=== PATIENT | female | born 1945 | race Two or more races ===

== ENCOUNTER 2024-02-09 15:28 | Emergency (ER) | payer OTHER, MEDICAID ==
[~2024-02-09] VITALS: Ht 154.9 cm; Wt 77.0 kg
[2024-02-09 16:58] LABS: Urine Bacteria None Seen /hpf (None Seen); Urine WBC None Seen /hpf (0 - 5)
[2024-02-09 17:14] LABS: Basophils # (auto) 0 10 ^3/uL (0-0.2); Basophils % (auto) 0.5 % (0.0-2.0); Eosinophils # (auto) 0 10 ^3/uL (0-0.8); Eosinophils % (auto) 0.7 % (0.0-7.0); Hematocrit 40.5 % (36.0-46.0); Hemoglobin 13.4 g/dL (12.2-16.2); Lymphocytes # (auto) 1.5 10 ^3/uL (0.4-5.4); Lymphocytes % (auto) 22.3 % (10.0-50.0); Mean Corpuscular Hemoglobin 30.4 pg (28.0-32.0); Mean Corpuscular Hgb Conc. 33.1 g/dL (32.0-36.0); Mean Corpuscular Volume 92.1 fL (80.0-100.0); Monocytes # (auto) 0.7 10 ^3/uL (0-1.3); Monocytes % (auto) 10.7 % (0.0-12.0); Neutrophils # (auto) 4.5 10 ^3/uL (1.6-8.6); Neutrophils % (auto) 65.8 % (37.0-80.0); Nucleated Red Blood Cells % 0.2 %; Platelet Count (auto) 224 10^3/uL (140-450); Red Cell Distribution Width 13.2 % (11.8-14.3); White Blood Cell 6.9 10^3/uL (4.4-10.8)
[2024-02-09 17:17] LABS: Urine Blood 2+ /uL (Negative); Urine Clarity Ex.Turbid (Clear); Urine Color Light-Orange (Yellow); Urine Protein, UAD 2+ (Negative); Urine Specific Gravity 1.012 (1.001-1.035); Urine Urobilinogen Normal (Negative)
[2024-02-09 17:27] LABS: Alanine Aminotransferase 13 U/L (7-40); Albumin 4.6 g/dL (3.2-4.8); Alkaline Phosphatase 85 U/L (46-116); Anion Gap 9 (5-15); Aspartate Aminotransferase 18 U/L (13-40); BUN/Creatinine Ratio 9.7 (10.0-20.0); Blood Urea Nitrogen 10 mg/dL (9-23); Calcium 9.8 mg/dL (8.7-10.4); Carbon Dioxide 28 mmol/L (20-31); Chloride 105 mmol/L (98-107); Glucose 134 mg/dL (74-106); Potassium 3.9 mmol/L (3.5-5.1); Sodium 142 mmol/L (136-145)
[2024-02-09 17:28] LABS: Bilirubin, Total 0.4 mg/dL (0.2-1.0)
[2024-02-09] MEDS: PHENAZOPYRIDINE HCL 100 MG TAB PO ONE (17:41)
[2024-02-09] MEDS: ACETAMINOPHEN 500 MG TAB PO ONE (17:41)
[2024-02-09 18:07] LABS: Lipase 28 U/L (12-53)
[2024-02-09] MEDS ORDERED: PHENSUP38 PR (18:23)
[2024-02-09] MEDS ORDERED: BACDST PO (18:23)
[2024-02-09] MEDS ORDERED: ACET500T58 PO (18:23)
[2024-02-09] MEDS: SULFAMETHOX W/TRIMETH(800/160MG) DS TAB PO ONE (18:32)
[2024-02-09 18:34] VITALS: BP 140/89; PULSE 80; RESP 17; TEMP 98.5; O2SAT 95
== END 2024-02-09 18:36 | disposition home or self-care (01) ==
LOC: ER 15:28
DX: N39.0 Urinary tract infection, site not specified (principal); K64.9 Unspecified hemorrhoids; Z79.899 Other long term (current) drug therapy; Z87.442 Personal history of urinary calculi
CPT/HCPCS: 36415; 80053; 81001; 83605; 83690; 85025; 93005